=== PATIENT | female | born 1940 | race Caucasian/White ===

== ENCOUNTER → 2016-09-15 | Outpatient (CLI) | payer MEDICARE ==
[~2016-09-15] MED LIST: ASPI-621 PO; CARV-39 PO; CARV12.543 PO; CELE200C PO; CRAN500T2 PO; HYAL1CAP PO; INSU100V5 SQ-INSULIN; METF10002 PO; MULT-257 PO; NIAC10002 PO; NORT25CA PO; NPH,100V SQ; OXYB5TAB7 PO; PRAV20TA2 PO; REGADENOSON 0.4 MG/5 ML SYRINGE ONE; SULF1TAB24 PO; TICA90TA PO; TIZA4CAP PO; TOLT2TAB4 PO; VALS1TAB3 PO; calcium PO
== END | disposition home or self-care (01) ==
LOC: CFH 12:05
PROVIDERS: ATTEND Internal Medicine Cardiovascular Disease
DX: I25.9 Chronic ischemic heart disease, unspecified (principal); R29.898 Other symptoms and signs involving the musculoskeletal system; Z98.61 Coronary angioplasty status
CPT/HCPCS: 78452; 93017; A9502; J2785

== ENCOUNTER → 2017-08-25 | Outpatient (CLI) | payer MEDICARE | LOC: CFH 12:59 | PROVIDERS: ATTEND Internal Medicine Cardiovascular Disease | DX: I10 Essential (primary) hypertension (principal); I25.10 Atherosclerotic heart disease of native coronary artery without angina pectoris | CPT/HCPCS: 78452; 93017; A9502; J2785 ==